=== PATIENT | female | born 1995 | race African-American/Black ===

== ENCOUNTER 2017-04-21 11:12 | Emergency (ER) | payer BC ==
[~2017-04-21] VITALS: Ht 165.1 cm; Wt 55.0 kg
[~2017-04-21 11:12] MED LIST: IBUP-2029
[2017-04-21 11:44] VITALS: BP 122/84
== END 2017-04-21 19:13 | disposition left against medical advice (07) ==
LOC: ER 18:56
DX: R10.13 Epigastric pain (principal); Z53.21 Procedure and treatment not carried out due to patient leaving prior to being seen by health care provider